=== PATIENT | female | born 1950 | race Caucasian/White ===

== ENCOUNTER 2023-09-08 09:30 | Outpatient (OUT) | payer MEDICARE, MEDICAID, SELFPAY ==
--- NOTE | 2023-09-08 | US_ITS ---
[place] [id number] Patient Name: CAROL BARKER MRN: [id number] date: 1950 Sex: F Assigned Patient Location: US Current Patient Location: Accession/Order Number: [id number] Exam Date: 09/08/2023 09:40 Report Date: 09/08/2023 13:19 At the request of: BAMBI HACKETT Procedure: US venous doppler LE BI EXAMINATION: US venous doppler LE BI HISTORY: Lower extremity edema COMPARISON: No relevant comparison available. TECHNIQUE: Grayscale, color and Doppler FINDINGS: Region: Bilateral legs Thrombus: None Flow: Normal Compressibility: Normal Augmentation: Normal US/US venous doppler LE BI IMPRESSION: No deep or superficial vein thrombus identified in the legs *Exam performed in accordance with [facility] practice guidelines- Peripheral venous ultrasound, February 14, 2010. Electronically authenticated by: NINFA AVERY Date: 09/08/2023 13:19
--- NOTE | 2023-09-08 09:38 | US_ITS ---
[place] [id number] Patient Name: CAROL BARKER MRN: [id number] date: 1950 Sex: F Assigned Patient Location: US Current Patient Location: Accession/Order Number: [id number] Exam Date: 09/08/2023 09:40 Report Date: 09/08/2023 13:20 At the request of: BAMBI HACKETT Procedure: US aorta EXAM: US aorta HISTORY: AAA Screening COMPARISON: None. TECHNIQUE: A scale, color and Doppler FINDINGS: Proximal aorta: 2.3 x 2.6 cm Mid aorta: 1.9 x 2.1 cm Distal aorta: 1.5 x 1.9 cm Right common iliac artery: 1.1 x 1.5 cm Left common iliac artery: 1.1 x 1.2 cm Mild atherosclerotic plaque Limited by body habitus and bowel gas US/US aorta IMPRESSION: No abdominal aortic aneurysm Electronically authenticated by: NINFA AVERY Date: 09/08/2023 13:20
--- NOTE | 2023-09-08 09:38 | US_ITS ---
The [address] [address] Patient Name: CAROL BARKER MRN: [id number] date: 1950 Sex: F Assigned Patient Location: US Current Patient Location: Accession/Order Number: [id number] Exam Date: 09/08/2023 09:40 Report Date: 09/08/2023 12:48 At the request of: BAMBI HACKETT Procedure: US carotid duplex BI EXAM: Carotid ultrasound. CLINICAL INDICATION: Bruit of right carotid artery. TECHNIQUE: Grayscale and duplex Doppler carotid ultrasound performed with color Doppler and waveform ultrasound imaging performed. NASCET criteria were used when evaluating the carotid arteries. FINDINGS: Mild right and moderate left carotid bifurcation atherosclerotic plaque. Plaque in the carotid arteries bilaterally. Spectral wave forms appear normal. The peak systolic/end diastolic velocities are as follows: Right CCA: 69 cm/sec Right Proximal ICA: 53 cm/sec Right Mid ICA: 70 cm/sec Right Distal ICA: 63 cm/sec Right Vertebral: 37 cm/sec Left CCA: 74 cm/sec Left Proximal ICA: 102 cm/sec Left Mid ICA: 58 cm/sec Left Distal ICA: 70 cm/sec Left Vertebral: 38 cm/sec Bilateral external carotid arteries are patent. Antegrade flow is demonstrated in the vertebral arteries bilaterally. US/US carotid duplex BI IMPRESSION: No significant carotid stenosis evident on either side. Electronically authenticated by: AMA ORELLANA Date: 09/08/2023 12:48
== END 2023-09-08 09:31 | disposition home or self-care (01) ==
LOC: US 09:30
PROVIDERS: PCP Internal Medicine; Visit Provider Internal Medicine Interventional Cardiology
DX: R09.89 Other specified symptoms and signs involving the circulatory and respiratory systems (principal); R60.0 Localized edema; Z13.6 Encounter for screening for cardiovascular disorders
CPT/HCPCS: 76706; 93880; 93970